=== PATIENT | female | born 1995 | race African-American/Black ===

== ENCOUNTER 2025-03-05 14:42 | Emergency (ER) | payer SELFPAY ==
[2025-03-05] MEDS ORDERED: Naloxone 0.4 MG/ML SDV IVPUSH PRN (15:00)
[2025-03-05] MEDS ORDERED: Sodium Chloride 0.9% 10 ML Syringe FLUSH PRN (15:00)
[2025-03-05] MEDS ORDERED: fentaNYL 100 MCG/2 ML SDV IVPUSH ONE (15:00)
[2025-03-05] MEDS: fentaNYL 100 MCG/2 ML SDV IM ONE (15:36)
== END 2025-03-05 16:30 | disposition home or self-care (01) ==
LOC: FB.ED 14:42
DX: S80.02XA Contusion of left knee, initial encounter (principal); Z88.6 Allergy status to analgesic agent; Z88.8 Allergy status to other drugs, medicaments and biological substances; W22.8XXA Striking against or struck by other objects, initial encounter
CPT/HCPCS: 73562; 96372; 99283; J3010

== ENCOUNTER 2025-04-24 20:02 | Emergency (ER) | payer SELFPAY | END 2025-04-24 21:14 | disposition home or self-care (01) | LOC: FB.ED 20:02 | DX: S80.02XA Contusion of left knee, initial encounter (principal); Z88.8 Allergy status to other drugs, medicaments and biological substances; Z79.899 Other long term (current) drug therapy; W10.8XXA Fall (on) (from) other stairs and steps, initial encounter; Y93.89 Activity, other specified | CPT/HCPCS: 73562; 99283; A9270 ==